=== PATIENT | male | born 1965 | race Caucasian/White ===

== ENCOUNTER 2018-05-31 07:57 | Emergency (ER) | payer SELFPAY ==
[~2018-05-31 07:57] MED LIST: ALLEGRA-D 24HOU1 T24 PO; GENTAMICIN EYE D5 ML OD; GENTAMICIN EYE D5 ML OU; OCUFLOX OPHTH DR5 ML OU; PREDNISONE10 MG PO
[2018-05-31 08:04] VITALS: BP 172/97
[2018-05-31 10:12] VITALS: PULSE 92; TEMP 97.2
== END 2018-05-31 10:12 | disposition home or self-care (01) ==
LOC: COL.ER 07:57
DX: S00.83XA Contusion of other part of head, initial encounter (principal); S20.211A Contusion of right front wall of thorax, initial encounter; Y04.8XXA Assault by other bodily force, initial encounter

== ENCOUNTER 2018-11-03 07:44 | Emergency (ER) | payer SELFPAY ==
[~2018-11-03] VITALS: Ht 160 cm; Wt 72.7 kg
[2018-11-03 07:50] VITALS: TEMP 99.8
[2018-11-03 08:28] LABS: BASO % 0.7 % (0.0-2.0); EOS % 0.9 % (0-4.0); GRAN # 3.3 (1.4-6.5); HEMATOCRIT 49.8 % (42.0-52.0); HEMOGLOBIN 17.6 g/dl (13.5-18.0); LYMPH # 0.6 (1.2-3.4); LYMPH % 12.5 % (20.0-51.0); MEAN CELL VOLUME 89 fl (80.0-100.0); MEAN CORPUSCULAR HEMOGLOBIN 31 pg (27.0-31.0); MEAN CORPUSCULAR HGB CONC 35 g/dl (33.0-37.0); MEAN PLATELET VOLUME 9.4 fl (7.4-10.4); MONO # 0.6 (0.1-0.6); MONO % 12.7 % (1.7-9.3); PLATELET COUNT 228 K/mm3 (130-400); RED BLOOD COUNT 5.62 M/mm3 (4.20-5.60); REDCELL DISTRIBUTION WIDTH-CV 11.3 % (11.5-14.5)
[2018-11-03 08:31] LABS: COLLECTION METHOD CLEAN CATCH
[2018-11-03 08:38] LABS: ALBUMIN 3.6 gm/dL (3.5-5.0); BILIRUBIN,TOTAL 0.8 mg/dL (0.0-1.0); CALCIUM 8.6 mg/dL (8.4-10.2); CREATININE, serum 0.88 (0.66-1.25); TOTAL PROTEIN 6.8 gm/dL (6.4-8.2)
[2018-11-03] MEDS ORDERED: DIABETA 2.5MG2.5 MG PO (08:38)
[2018-11-03] MEDS ORDERED: GLUCOPHAGE500 MG/TAB PO (08:38)
[2018-11-03] MEDS ORDERED: FREESTYLE PREC1 EAC5 MC (08:40)
[2018-11-03 08:41] LABS: PH 6 (5-8); SQUAMOUS EPITHELIAL None Seen /hpf; URINE APPEARANCE Clear; URINE BACTERIA None Seen /hpf; URINE BILIRUBIN Negative (NEGATIVE); URINE BLOOD Negative (NEGATIVE); URINE COLOR Yellow; URINE GLUCOSE 3+ (NEGATIVE); URINE KETONE Negative (NEGATIVE); URINE LEUKOCYTE ESTERASE Negative (NEGATIVE); URINE NITRATE Negative (NEGATIVE); URINE PROTEIN(semi-quant) Negative (NEGATIVE); URINE RBC 0-2 /hpf; URINE UROBILINOGEN Negative (NEGATIVE)
[2018-11-03] MEDS ORDERED: DIFLUCAN 100MG100 MG PO (08:43)
[2018-11-03] MEDS ORDERED: PRINIVIL10 MG PO (10:03)
[2018-11-03 10:31] VITALS: BP 151/106; PULSE 82
--- NOTE | 2018-11-03 10:46 | NUR ---
YSABEL responded to an ED consult to schedule an appointment for patient to see diabetes education. SW contacted diabetes ed and they report they need an order from the PCP. YSABEL reported this information to ED doctor and nurse. Doctor reported he will write and order. SW faxed order to diabeted ed.
== END 2018-11-03 10:34 | disposition home or self-care (01) ==
LOC: COL.ER 07:44
PROVIDERS: Emergency Medicine
DX: R36.9 Urethral discharge, unspecified (principal); B37.49 Other urogenital candidiasis; E11.9 Type 2 diabetes mellitus without complications
CPT/HCPCS: J7030

== ENCOUNTER 2018-11-08 14:01 | Emergency (ER) | payer SELFPAY ==
[~2018-11-08 14:01] MED LIST changes: +DIABETA 2.5MG2.5 MG PO; +DIFLUCAN 100MG100 MG PO; +FREESTYLE PREC1 EAC5 MC; +GLUCOPHAGE500 MG/TAB PO; +PRINIVIL10 MG PO
== END 2018-11-08 14:11 | disposition left against medical advice (07) ==
LOC: COL.ER 14:01
DX: Z72.9 Problem related to lifestyle, unspecified (principal)

== ENCOUNTER → 2019-01-02 | Outpatient (CLI) | payer SELFPAY ==
[2019-01-02 13:27] LABS: CHOLESTEROL RISK RATIO 5.9
== END ==
LOC: ZLAB.FHCC 12:07
PROVIDERS: Physician Assistant
DX: Z01.89 Encounter for other specified special examinations (principal)